=== PATIENT | male | born 1975 | race Caucasian/White ===

== ENCOUNTER 2016-04-18 09:15 | Emergency (ER) | payer BC ==
--- NOTE | 2016-04-18 09:59 | REP ---
RIGHT ANKLE: Four views. HISTORY: Trauma. FINDINGS: Four views right ankle demonstrate an intact ankle mortise. No fracture or subluxation is seen. There is anterolateral soft tissue swelling. IMPRESSION: Soft-tissue swelling. No fracture seen. Signed by Liam Nolan MD 04/18/2016 10:08 A
--- NOTE | 2016-04-18 10:08 | EDDOCDS ---
Physician Documentation [facility] Name: Yoan Cobb Age: 40 yrs Sex: Male : 1975 Arrival Date: 04/18/2016 Time: 09:15 Bed PR Private MD: Disposition: 04/18/16 09:49 Discharged to Home/Self Care. Impression: Sprain of ankle, Essential (primary) hypertension. - Condition is Stable. - Prescriptions for naproxen 500 mg Oral tablet - take 1 tablet by ORAL route every 12 hours; 28 tablet. Tylenol 325 mg Oral Tablet - take 2 tablet by ORAL route every 6 hours as needed; 1 bottle. - Medication Reconciliation, Work Release Form - 5 day, Local Pharmacy Hours form. - Follow up: Private Physician; When: 2 - 3 days; Reason: Recheck today's complaints. Follow up: Emergency Department; When: As soon as possible; Reason: Worsening of conditions. - Problem is new. - Symptoms have worsened. Historical: - Allergies: no known allergies; - Home Meds: 1. none - PMHx: none; - PSHx: foreign body removal from right foot; - Social history: Smoking status: Patient states was never smoker of tobacco. No barriers to communication noted, The patient speaks fluent Syriac, Speaks appropriately for age. - Family history: Not pertinent. - : The pt / caregiver states he / she is not on anticoagulants. Home medication list is obtained from the patient. - Exposure Risk Screening:: None identified. Vital Signs: 04/18 09:16 BP 164 / 74; Pulse 93; Resp 18; Temp 96.9(O); Pulse Ox 97% on R/A; Weight 136.08 kg / lr2 300.01 lbs (R); Height 6 ft. 5 in. (195.58 cm) (R); Pain 4/10; 09:16 Body Mass Index 35.57 (136.08 kg, 195.58 cm) lr2 MDM: 09:24 Ankle, Complete Ordered. EDMS 09:44 Financial registration complete. mm15 09:48 Crutches ordered. jk8 09:49 [facility] Payment Agreement was scanned into [employer] and attached to record. mm15 Signatures: Dispatcher [employer] EDTX Selena Rodriguez RN RN srm McGrath, Marlynn mm15 Michael Noyola PA-C PA-C jk8 The chart was reviewed and I authenticate all verbal orders and agree with the evaluation and treatment provided.Attachments: 09:49 [facility] Payment Agreement mm15 MTDD
--- NOTE | 2016-04-18 10:08 | EDDOCDS ---
Nurse's Notes [facility] Name: Yoan Cobb Age: 40 yrs Sex: Male : 1975 Arrival Date: 04/18/2016 Time: 09:15 Bed PR Private MD: Diagnosis: Sprain of ankle;Essential (primary) hypertension Presentation: 04/18 09:20 Presenting complaint: Patient states: rolled right ankle yesterday after stepping in a [facility] rut. swelling to top of foot and ankle. moves toes well. pedal pulses palpable. The patients lower extremity has obvious swelling present on examination. The patient has been moved to a treatment area. Adult Sepsis Screening: The patient does not have new or worsening altered mentation. Patient's respiratory rate is less than 22. Systolic blood pressure is greater than 100. Patient has a qSOFA score of 0- Negative Sepsis Screen. Suicide/Homicide risk assessment- the patient denies having any suicidal and/or homicidal ideations and does not present with any other emotional, behavioral or mental health complaints. 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 Transition of care: patient was not received from another setting of care. 09:20 Acuity: SAÚL Level 4 [facility] 09:20 Method Of Arrival: Wheelchair [facility] Triage Assessment: 09:22 General: Appears in no apparent distress, Behavior is appropriate for age, cooperative. srm Pain: Pain currently is 1 out of 10 on a pain scale. At worst was 7 out of 10 on a pain scale. 09:23 Pt Declines HIV testing. Musculoskeletal: Capillary refill < 3 seconds in right toes No srm deformity noted Reports pain in right ankle. Historical: - Allergies: no known allergies; - Home Meds: 1. none - PMHx: none; - PSHx: foreign body removal from right foot; - Social history: Smoking status: Patient states was never smoker of tobacco. No barriers to communication noted, The patient speaks fluent Frisian, Speaks appropriately for age. - Family history: Not pertinent. - : The pt / caregiver states he / she is not on anticoagulants. Home medication list is obtained from the patient. - Exposure Risk Screening:: None identified. Screenin:23 Screening information is obtained from the patient. Fall risk: No risks identified. srm Assistance ADL's: requires no assistance with activities of daily living. Abuse/DV Screen: The patient / caregiver reports he/she is: not in a situation that causes fear, pain or injury. Nutritional screening: No deficits noted. Advance Directives: Currently, there is a health care proxy, grayson. There is no active DNR order. There is an active Power of Washery Boss, nicol. 10:04 home support is adequate. srm Assessment: 10:04 General: Appears in no apparent distress, Behavior is appropriate for age, cooperative. srm Musculoskeletal: Circulation, motion, and sensation intact Capillary refill in right toes Signs and Symptoms of Compartment Syndrome: no signs of compartment syndrome. Vital Signs: 09:16 BP 164 / 74; Pulse 93; Resp 18; Temp 96.9(O); Pulse Ox 97% on R/A; Weight 136.08 kg lr2 (R); Height 6 ft. 5 in. (195.58 cm) (R); Pain 4/10; 09:16 Body Mass Index 35.57 (136.08 kg, 195.58 cm) lr2 Vitals: 09:16 Log In Time: April 18, 2016 at 09:15. lr2 ED Course: 09:16 Patient visited by Maren Coe. lr2 09:16 Patient moved to Waiting lr2 09:18 Patient moved to Pre RCE lr2 09:20 Patient moved to Triage 1 srm 09:21 [facility] jk8 09:21 Kristi Cardensa MD is Attending Physician. jk8 09:21 Patient visited by Michael Noyola PA-C. jk8 09:21 Triage Initiated srm 09:24 Patient moved to TR1 srm 09:48 Patient moved to PR1 / 25 srm 09:49 [facility] Payment Agreement was scanned into [employer] and attached to record. mm15 10:04 The patient / caregiver is instructed regarding the plan of care and ED course. srm Accompanied by Family Member, Patient has correct armband on for positive identification. 10:04 Ankle, Complete Returned. EDMS 10:04 No IV's were initiated during this patient's visit. No procedures done that require srm assistance. Candelario wrap to right ankle. by PA Crutch training done. Order Results: Radiology Order: Ankle, Complete Test: Ankle, Complete REASON FOR EXAMINATION: Trauma; RIGHT ANKLE: Four views.; ; HISTORY: Trauma.; ; FINDINGS: Four views right ankle demonstrate an intact ankle mortise. No; fracture or subluxation is seen. There is anterolateral soft tissue swelling.; ; IMPRESSION:; Soft-tissue swelling. No fracture seen.; ; ; ; ; Unreviewed; Outcome: 09:49 Discharge ordered by Provider. jk8 10:04 Discharge Assessment: Patient awake, alert and oriented x 3. No cognitive and/or srm functional deficits noted. Patient verbalized understanding of disposition instructions. patient administered narcotics - no. The following High Risk Discharge criteria are identified: None. Discharged to home ambulatory, with crutches, with family. Condition: stable. Discharge instructions given to patient, Instructed on discharge instructions, follow up and referral plans. medication usage, Rest, Ice, Compression and Elevation. crutch walking, Demonstrated understanding of instructions, crutch walking, medications, Pt was receptive of discharge instructions/ teaching. Prescriptions given X 2, Work note provided to patient. Instructed on Demonstrated understanding of work note x5 days. No special radiology studies were completed. Property sent home with patient. 10:08 Patient left the ED. srm Signatures: Dispatcher [employer] EDMS Selena Rodriguez, RN RN Richa Maciel mm15 Michael Noyola PA-C PA-C jk8 Maren Coe lr2 [place]
--- NOTE | 2016-04-20 11:09 | EDDOCDS ---
Nurse's Notes [facility] Name: Yoan Cobb Age: 40 yrs Sex: Male : 1975 Arrival Date: 04/18/2016 Time: 09:15 Bed PR Private MD: Diagnosis: Sprain of ankle;Essential (primary) hypertension Presentation: 04/18 09:20 Presenting complaint: Patient states: rolled right ankle yesterday after stepping in a [facility] rut. swelling to top of foot and ankle. moves toes well. pedal pulses palpable. The patients lower extremity has obvious swelling present on examination. The patient has been moved to a treatment area. Adult Sepsis Screening: The patient does not have new or worsening altered mentation. Patient's respiratory rate is less than 22. Systolic blood pressure is greater than 100. Patient has a qSOFA score of 0- Negative Sepsis Screen. Suicide/Homicide risk assessment- the patient denies having any suicidal and/or homicidal ideations and does not present with any other emotional, behavioral or mental health complaints. 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 Transition of care: patient was not received from another setting of care. 09:20 Acuity: SAÚL Level 4 [facility] 09:20 Method Of Arrival: Wheelchair [facility] Triage Assessment: 09:22 General: Appears in no apparent distress, Behavior is appropriate for age, cooperative. srm Pain: Pain currently is 1 out of 10 on a pain scale. At worst was 7 out of 10 on a pain scale. 09:23 Pt Declines HIV testing. Musculoskeletal: Capillary refill < 3 seconds in right toes No srm deformity noted Reports pain in right ankle. Historical: - Allergies: no known allergies; - Home Meds: 1. none - PMHx: none; - PSHx: foreign body removal from right foot; - Social history: Smoking status: Patient states was never smoker of tobacco. No barriers to communication noted, The patient speaks fluent East Timorese, Speaks appropriately for age. - Family history: Not pertinent. - : The pt / caregiver states he / she is not on anticoagulants. Home medication list is obtained from the patient. - Exposure Risk Screening:: None identified. Screenin:23 Screening information is obtained from the patient. Fall risk: No risks identified. srm Assistance ADL's: requires no assistance with activities of daily living. Abuse/DV Screen: The patient / caregiver reports he/she is: not in a situation that causes fear, pain or injury. Nutritional screening: No deficits noted. Advance Directives: Currently, there is a health care proxy, grayson. There is no active DNR order. There is an active Power of Deposition Reporter, nicol. 10:04 home support is adequate. srm Assessment: 10:04 General: Appears in no apparent distress, Behavior is appropriate for age, cooperative. srm Musculoskeletal: Circulation, motion, and sensation intact Capillary refill in right toes Signs and Symptoms of Compartment Syndrome: no signs of compartment syndrome. Vital Signs: 09:16 BP 164 / 74; Pulse 93; Resp 18; Temp 96.9(O); Pulse Ox 97% on R/A; Weight 136.08 kg lr2 (R); Height 6 ft. 5 in. (195.58 cm) (R); Pain 4/10; 09:16 Body Mass Index 35.57 (136.08 kg, 195.58 cm) lr2 Vitals: 09:16 Log In Time: April 18, 2016 at 09:15. lr2 ED Course: 09:16 Patient visited by Maren oCe. lr2 09:16 Patient moved to Waiting lr2 09:18 Patient moved to Pre RCE lr2 09:20 Patient moved to Triage 1 srm 09:21 [facility]ola [facility]-C [facility] jk8 09:21 Kristi Cardenas MD is Attending Physician. jk8 09:21 Patient visited by Michael Noyola PA-C. jk8 09:21 Triage Initiated srm 09:24 Patient moved to TR1 srm 09:48 Patient moved to PR1 / 25 srm 09:49 [facility] Payment Agreement was scanned into [employer] and attached to record. mm15 10:04 The patient / caregiver is instructed regarding the plan of care and ED course. srm Accompanied by Family Member, Patient has correct armband on for positive identification. 10:04 Ankle, Complete Returned. EDMS 10:04 No IV's were initiated during this patient's visit. No procedures done that require srm assistance. Candleario wrap to right ankle. by PA Crutch training done. 18:39 T-Sheet-- Draft Copy was scanned into [employer] and attached to record. klr Order Results: Radiology Order: Ankle, Complete Test: Ankle, Complete REASON FOR EXAMINATION: Trauma; RIGHT ANKLE: Four views.; ; HISTORY: Trauma.; ; FINDINGS: Four views right ankle demonstrate an intact ankle mortise. No; fracture or subluxation is seen. There is anterolateral soft tissue swelling.; ; IMPRESSION:; ; Soft-tissue swelling. No fracture seen.; ; ; Signed by; Liam Nolan MD 04/18/2016 10:08 A; Outcome: 09:49 Discharge ordered by Provider. jk8 10:04 Discharge Assessment: Patient awake, alert and oriented x 3. No cognitive and/or srm functional deficits noted. Patient verbalized understanding of disposition instructions. patient administered narcotics - no. The following High Risk Discharge criteria are identified: None. Discharged to home ambulatory, with crutches, with family. Condition: stable. Discharge instructions given to patient, Instructed on discharge instructions, follow up and referral plans. medication usage, Rest, Ice, Compression and Elevation. crutch walking, Demonstrated understanding of instructions, crutch walking, medications, Pt was receptive of discharge instructions/ teaching. Prescriptions given X 2, Work note provided to patient. Instructed on Demonstrated understanding of work note x5 days. No special radiology studies were completed. Property sent home with patient. 10:08 Patient left the ED. srm Signatures: Dispatcher [employer] EDMS Selena Rodriguez, RN RN Richa Maciel mm15 Michael Noyola PA-C PA-C jk8 Redder, Kathie klr Ross, Laura lr2 Chart Complete MTDD
--- NOTE | 2016-04-20 11:09 | EDDOCDS ---
Physician Documentation [facility] Name: Yoan Cobb Age: 40 yrs Sex: Male : 1975 Arrival Date: 04/18/2016 Time: 09:15 Bed PR Private MD: Disposition: 04/18/16 09:49 Discharged to Home/Self Care. Impression: Sprain of ankle, Essential (primary) hypertension. - Condition is Stable. - Prescriptions for naproxen 500 mg Oral tablet - take 1 tablet by ORAL route every 12 hours; 28 tablet. Tylenol 325 mg Oral Tablet - take 2 tablet by ORAL route every 6 hours as needed; 1 bottle. - Medication Reconciliation, Work Release Form - 5 day, Local Pharmacy Hours form. - Follow up: Private Physician; When: 2 - 3 days; Reason: Recheck today's complaints. Follow up: Emergency Department; When: As soon as possible; Reason: Worsening of conditions. - Problem is new. - Symptoms have worsened. Historical: - Allergies: no known allergies; - Home Meds: 1. none - PMHx: none; - PSHx: foreign body removal from right foot; - Social history: Smoking status: Patient states was never smoker of tobacco. No barriers to communication noted, The patient speaks fluent Divehi, Speaks appropriately for age. - Family history: Not pertinent. - : The pt / caregiver states he / she is not on anticoagulants. Home medication list is obtained from the patient. - Exposure Risk Screening:: None identified. Vital Signs: 04/18 09:16 BP 164 / 74; Pulse 93; Resp 18; Temp 96.9(O); Pulse Ox 97% on R/A; Weight 136.08 kg / lr2 300.01 lbs (R); Height 6 ft. 5 in. (195.58 cm) (R); Pain 4/10; 09:16 Body Mass Index 35.57 (136.08 kg, 195.58 cm) lr2 MDM: 09:24 Ankle, Complete Ordered. EDMS 09:44 Financial registration complete. mm15 09:48 Crutches ordered. jk8 09:49 [facility] Payment Agreement was scanned into [employer] and attached to record. mm15 18:39 T-Sheet-- Draft Copy was scanned into [employer] and attached to record. klr Signatures: Dispatcher [employer] Selena Coulter, RN RN [facility] Lau Dayannamargarito mm15 Michael Noyola PA-C PA-C jk8 Redder, Kathie klr The chart was reviewed and I authenticate all verbal orders and agree with the evaluation and treatment provided.Attachments: 09:49 [facility] Payment Agreement mm15 18:39 T-Sheet-- Draft Copy klr Chart Complete MTDD
--- NOTE | 2016-04-20 11:09 | EDDOCDS ---
Physician Documentation [facility] Name: Yoan Cobb Age: 40 yrs Sex: Male : 1975 Arrival Date: 04/18/2016 Time: 09:15 Bed PR Private MD: Disposition: 04/18/16 09:49 Discharged to Home/Self Care. Impression: Sprain of ankle, Essential (primary) hypertension. - Condition is Stable. - Prescriptions for naproxen 500 mg Oral tablet - take 1 tablet by ORAL route every 12 hours; 28 tablet. Tylenol 325 mg Oral Tablet - take 2 tablet by ORAL route every 6 hours as needed; 1 bottle. - Medication Reconciliation, Work Release Form - 5 day, Local Pharmacy Hours form. - Follow up: Private Physician; When: 2 - 3 days; Reason: Recheck today's complaints. Follow up: Emergency Department; When: As soon as possible; Reason: Worsening of conditions. - Problem is new. - Symptoms have worsened. Historical: - Allergies: no known allergies; - Home Meds: 1. none - PMHx: none; - PSHx: foreign body removal from right foot; - Social history: Smoking status: Patient states was never smoker of tobacco. No barriers to communication noted, The patient speaks fluent Azeri, Speaks appropriately for age. - Family history: Not pertinent. - : The pt / caregiver states he / she is not on anticoagulants. Home medication list is obtained from the patient. - Exposure Risk Screening:: None identified. Vital Signs: 04/18 09:16 BP 164 / 74; Pulse 93; Resp 18; Temp 96.9(O); Pulse Ox 97% on R/A; Weight 136.08 kg / lr2 300.01 lbs (R); Height 6 ft. 5 in. (195.58 cm) (R); Pain 4/10; 09:16 Body Mass Index 35.57 (136.08 kg, 195.58 cm) lr2 MDM: 09:24 Ankle, Complete Ordered. EDMS 09:44 Financial registration complete. mm15 09:48 Crutches ordered. jk8 09:49 [facility] Payment Agreement was scanned into [employer] and attached to record. mm15 18:39 T-Sheet-- Draft Copy was scanned into [employer] and attached to record. klr Signatures: Dispatcher [employer] Selena Coulter, RN RN [facility] Lau Dayannamargarito mm15 Michael Noyola PA-C PA-C jk8 Redder, Kathie klr The chart was reviewed and I authenticate all verbal orders and agree with the evaluation and treatment provided.Attachments: 09:49 [facility] Payment Agreement mm15 18:39 T-Sheet-- Draft Copy klr Chart Complete MTDD
== END 2016-04-18 10:08 | disposition home or self-care (01) ==
LOC: M ED 09:15
DX: I10 Essential (primary) hypertension (principal); S93.401A Sprain of unspecified ligament of right ankle, initial encounter; X58.XXXA Exposure to other specified factors, initial encounter; Y92.89 Other specified places as the place of occurrence of the external cause; Y93.89 Activity, other specified; Y99.8 Other external cause status

== ENCOUNTER → 2022-04-23 | Outpatient (REF) | payer BC ==
[2022-04-23 17:24] LABS: HEMATOCRIT 46.4 % (42.0-52.0); HEMOGLOBIN 15.5 g/dl (13.5-17.5); MEAN CORPUSCULAR HEMOGLOBIN 30.4 pg (27.0-33.0); MEAN CORPUSCULAR HGB CONC 33.4 g/dl (32.0-36.5); PLATELET COUNT, AUTOMATED 230 10^3/uL (150-450); WHITE BLOOD COUNT 8.6 10^3/uL (4.0-10.0)
[2022-04-23 18:02] LABS: ALBUMIN 4.4 G/DL (3.2-5.2); ALKALINE PHOSPHATASE 106 U/L (46-116); ALT/SGPT 49 U/L (7.0-40); AST/SGOT 25 U/L (<34); BILIRUBIN,TOTAL 0.6 MG/DL (0.3-1.2); BLOOD UREA NITROGEN 14 MG/DL (9-23); CALCIUM LEVEL 9.3 MG/DL (8.5-10.1); CARBON DIOXIDE LEVEL 31 MMOL/L (20-31); CHLORIDE LEVEL 103 MMOL/L (98-107); CREATININE FOR GFR 0.77 MG/DL (0.70-1.30); GLOMERULAR FILTRATION RATE > 60.0 (>60); GLUCOSE, FASTING 161 MG/DL (60-100); POTASSIUM SERUM 4.1 MMOL/L (3.5-5.1); SODIUM LEVEL 138 MMOL/L (136-145); TOTAL PROTEIN 7.5 G/DL (5.7-8.2)
== END ==
LOC: M SFHCCLAY 13:56
PROVIDERS: ATTEND Nurse Practitioner Family
DX: Z01.818 Encounter for other preprocedural examination (principal)

== ENCOUNTER → 2022-05-11 | Outpatient (CLI) | payer BC ==
[~2022-05-11] MED LIST: HYDR-3713 PO
== END ==
LOC: M LABSMTC 07:30
PROVIDERS: ATTEND Anesthesiology
DX: Z01.812 Encounter for preprocedural laboratory examination (principal); Z20.822 Contact with and (suspected) exposure to COVID-19

== ENCOUNTER 2022-05-13 09:06 | Day surgery (SDC) | payer BC ==
[~2022-05-13] VITALS: Ht 195.6 cm; Wt 145.1 kg
[~2022-05-13 09:06] MED LIST changes: +CelecoXIB 400 MG CAP PO ONE; -HYDR-3713 PO
[2022-05-13] MEDS ORDERED: LIDOCAINE 1% SDV 5ML VIAL SC PRN (09:35)
[2022-05-13] MEDS ORDERED: LR 1,000 ML IV SCH (09:35)
[2022-05-13] MEDS ORDERED: BUPIVACAINE HCL 0.25% 30ML VIAL As Ordered ONE (10:31)
[2022-05-13] MEDS ORDERED: LIDOCAINE 1% SDV 30ML VIAL As Ordered ONE (10:31)
[2022-05-13] MEDS ORDERED: ceFAZolin 1GM VIAL As Ordered ONE (10:58)
[2022-05-13] MEDS ORDERED: MIDAZOLAM INJ 2MG/2ML VIAL As Ordered ONE (11:17)
[2022-05-13] MEDS ORDERED: LIDOCAINE 2% 100MG/5ML SDV (FOR ANES.) As Ordered ONE (11:17)
[2022-05-13] MEDS ORDERED: ONDANSETRON 4MG 2ML VIAL As Ordered ONE (11:17)
[2022-05-13] MEDS ORDERED: propofoL 200 MG/20 ML VIAL As Ordered ONE (11:17)
[2022-05-13] MEDS ORDERED: fentaNYL 250 MCG/5 ML INJECTION As Ordered ONE (11:17)
[2022-05-13] MEDS ORDERED: SUGAMMADEX SODIUM 500 MG/5 ML VIAL (BRIDION) As Ordered ONE (11:17)
[2022-05-13] MEDS ORDERED: ROCURONIUM BROMIDE 50MG/5ML VIAL As Ordered ONE ×2 (11:17→11:26)
[2022-05-13] MEDS ORDERED: KETOROLAC 60MG 2ML VIAL As Ordered ONE (11:17)
[2022-05-13] MEDS ORDERED: ACETAMINOPHEN 1000MG 100ML IV BAG As Ordered ONE (11:23)
[2022-05-13] MEDS ORDERED: HYDR-3713 PO (12:33)
[2022-05-13] MEDS ORDERED: NORCO, ANEXSIA 5/325MG TABLET (HYDROcodone/ACETAMINOPHEN) PO PRN ×2 (12:55)
[2022-05-13 14:32] VITALS: BP 152/96
[2022-05-13] MEDS ORDERED: KETOROLAC 30 MG/ML 1ML VIAL IV SCH (18:00)
== END 2022-05-13 14:40 | disposition home or self-care (01) ==
LOC: M SDC 09:06
PROVIDERS: ATTEND Surgery
DX: K40.90 Unilateral inguinal hernia, without obstruction or gangrene, not specified as recurrent (principal); E66.01 Morbid (severe) obesity due to excess calories; R94.31 Abnormal electrocardiogram [ECG] [EKG]
CPT/HCPCS: 49650; C1781; J0131; J0690; J1100; J1885; J2250; J2405; J3010; S0020; S2900

== ENCOUNTER → 2022-07-16 | Outpatient (CLI) | payer BC ==
[~2022-07-16] MED LIST changes: -CelecoXIB 400 MG CAP PO ONE; +HYDR-3713 PO
== END ==
LOC: M CARPUL 15:32
PROVIDERS: ATTEND Nurse Practitioner Family
DX: R94.31 Abnormal electrocardiogram [ECG] [EKG] (principal)

== ENCOUNTER → 2023-03-18 | Outpatient (REF) | payer BC ==
[2023-03-18 19:36] LABS: ALBUMIN 4.2 G/DL (3.2-5.2); ALKALINE PHOSPHATASE 93 U/L (46-116); ALT/SGPT 40 U/L (7.0-40); AST/SGOT 20 U/L (<34); BILIRUBIN,TOTAL 0.6 MG/DL (0.3-1.2); BLOOD UREA NITROGEN 14 MG/DL (9-23); CALCIUM LEVEL 9.2 MG/DL (8.5-10.1); CARBON DIOXIDE LEVEL 32 MMOL/L (20-31); CHLORIDE LEVEL 105 MMOL/L (98-107); CHOLESTEROL LEVEL 220 MG/DL (<200); CHOLESTEROL RISK RATIO 5.35 (<5); CREATININE FOR GFR 0.73 MG/DL (0.70-1.30); GLOMERULAR FILTRATION RATE > 60.0 (>60); GLUCOSE, FASTING 91 MG/DL (60-100); HDL CHOLESTEROL 41.1 MG/DL (>40); LDL CHOLESTEROL 147.1 MG/DL (<100); NON-HDL-C 178.9 MG/DL; POTASSIUM SERUM 4.4 MMOL/L (3.5-5.1); SODIUM LEVEL 139 MMOL/L (136-145); TOTAL PROTEIN 7.3 G/DL (5.7-8.2); TRIGLYCERIDES LEVEL 159 MG/DL (<150)
[2023-03-18 20:39] LABS: HEMOGLOBIN A1c 5.8 % (4.0-6.0)
== END ==
LOC: M SFHCCLAY 13:37
PROVIDERS: ATTEND Nurse Practitioner Family
DX: R73.01 Impaired fasting glucose (principal); R74.8 Abnormal levels of other serum enzymes; Z13.220 Encounter for screening for lipoid disorders

== ENCOUNTER → 2024-04-19 | Outpatient (REF) | payer BC ==
[2024-04-19 18:54] LABS: FREE T4 1.28 NG/DL (0.89-1.76)
[2024-04-19 18:55] LABS: THYROID STIMULATING HORMONE 1.479 uIU/ML (0.55-4.78)
[2024-04-19 18:57] LABS: ALKALINE PHOSPHATASE 106 U/L (40-129); ALT/SGPT 30 U/L (7.0-40); AST/SGOT 18 U/L (<34); BILIRUBIN,TOTAL 0.6 MG/DL (0.3-1.2); BLOOD UREA NITROGEN 19 MG/DL (9-23); CALCIUM LEVEL 9.4 MG/DL (8.5-10.1); CARBON DIOXIDE LEVEL 30 MMOL/L (20-31); CHLORIDE LEVEL 105 MMOL/L (98-107); CHOLESTEROL LEVEL 210 MG/DL (<200); CHOLESTEROL RISK RATIO 5.17 (<5); CREATININE FOR GFR 0.69 MG/DL (0.70-1.30); GLOMERULAR FILTRATION RATE > 60.0 (>60); GLUCOSE, FASTING 102 MG/DL (60-100); HDL CHOLESTEROL 40.6 MG/DL (>40); LDL CHOLESTEROL 123.2 MG/DL (<100); NON-HDL-C 169.4 MG/DL; POTASSIUM SERUM 4.7 MMOL/L (3.5-5.1); SODIUM LEVEL 144 MMOL/L (136-145); TOTAL PROTEIN 7.5 G/DL (5.7-8.2); TRIGLYCERIDES LEVEL 231 MG/DL (<150)
[2024-04-19 19:09] LABS: BASO # 0.1 10^3/uL (0.0-0.2); BASO % 1.1 % (0.0-1.0); EOS # 0.7 10^3/uL (0.0-0.5); HEMATOCRIT 47.2 % (42.0-52.0); HEMOGLOBIN 15.7 g/dl (13.5-17.5); LYMPH # 1.8 10^3/uL (1.5-5.0); LYMPH % 20.6 % (24.0-44.0); MEAN CORPUSCULAR HEMOGLOBIN 30.1 pg (27.0-33.0); MEAN CORPUSCULAR HGB CONC 33.3 g/dl (32.0-36.5); MEAN CORPUSCULAR VOLUME 90.4 fl (80.0-96.0); MONO # 0.7 10^3/uL (0.0-0.8); NEUTROPHILS # 5.2 10^3/uL (1.5-8.5); NEUTROPHILS % 61.8 % (36.0-66.0); PLATELET COUNT, AUTOMATED 223 10^3/uL (150-450); RED BLOOD COUNT 5.22 10^6/uL (4.30-6.10); WHITE BLOOD COUNT 8.5 10^3/uL (4.0-10.0)
[2024-04-19 19:49] LABS: HEMOGLOBIN A1c 5.6 % (4.0-6.0)
== END ==
LOC: M SFHCCLAY 10:44
PROVIDERS: ATTEND Nurse Practitioner Family
DX: Z00.00 Encounter for general adult medical examination without abnormal findings (principal); R74.8 Abnormal levels of other serum enzymes; Z13.220 Encounter for screening for lipoid disorders; R73.03 Prediabetes

== ENCOUNTER → 2024-04-19 | Outpatient (CLI) | payer BC | LOC: M CLY 11:08 | PROVIDERS: ATTEND Nurse Practitioner Family | DX: J06.9 Acute upper respiratory infection, unspecified (principal) ==

== ENCOUNTER 2024-07-14 11:41 | Day surgery (SDC) | payer BC ==
[~2024-07-14] VITALS: Ht 195.6 cm; Wt 137.0 kg
[~2024-07-14 11:41] MED LIST changes: +LIDOCAINE 2% 100MG/5ML SDV (FOR ANES.) As Ordered ONE; +propofoL 200 MG/20 ML VIAL As Ordered ONE
[2024-07-14 13:41] VITALS: TEMP 97.1
[2024-07-14 14:01] VITALS: BP 147/102; O2SAT 98
== END 2024-07-14 14:14 | disposition home or self-care (01) ==
LOC: M OPP 11:41
PROVIDERS: ATTEND Surgery
DX: Z12.11 Encounter for screening for malignant neoplasm of colon (principal); K57.30 Diverticulosis of large intestine without perforation or abscess without bleeding